=== PATIENT | male | born 1960 | race Caucasian/White ===

== ENCOUNTER 2016-12-08 07:45 | Day surgery (SDC) | payer MEDICAID ==
[2016-12-08] MEDS ORDERED: [UNRECOGNIZED DRUG - OTHER] (08:17)
[2016-12-08 08:23] VITALS: BP 139/96; BMI 23.0
[2016-12-08 08:23] LABS: HEMATOCRIT 45.9 % (42.0-54.0); HEMOGLOBIN 16.2 g/dL (13.5-17.5); MCH 33.6 pg (26.0-34.0); MCHC 35.3 g/dL (31.0-37.0); MCV 95.2 fL (80.0-100.0); MEAN PLATELET VOLUME 9.7 fL (7.4-10.4); RBC 4.82 10x6/uL (4.20-6.10); RDW 12.7 % (11.5-14.5); WBC 10.4 10x3/uL (4.8-10.8)
--- NOTE | 2016-12-08 11:30 | NUR ---
1115-patient updated as to dr hunter's estimated time for his procedure --1 to 1/2 hours.
--- NOTE | 2016-12-08 14:30 | NUR ---
PT REC'D TO ROOM VIA STRETCHER. AWAKE, ALERT.
--- NOTE | 2016-12-08 14:45 | NUR ---
FULL LIQ DIET PROVIDED AND TOLERATED.
--- NOTE | 2016-12-08 15:06 | NUR ---
IV D/C'D CATH INTACT RIGHT FOREARM.
--- NOTE | 2016-12-08 15:15 | NUR ---
D/C INSTRUCTIONS EXPLAINED TO PT. VOICED UNDERSTANDING. COPIES OF ALL GIVEN. AWAITING TRANSPORTATION HOME.
--- NOTE | 2016-12-08 15:48 | NUR ---
D/C'D HOME VIA W/C TO PRIVATE CAR.
--- NOTE | 2016-12-18 10:04 | OP ---
PATIENT NAME: LIZ NG MEDICAL RECORD: [id number] :58 LOCATION:D.OPS ADMISSION DATE: SURGEON: OLVIN GRISSOM MD DATE OF OPERATION: 12/08/2016 PREOPERATIVE DIAGNOSIS: History of colon polyps in need of surveillance colonoscopy. POSTOPERATIVE DIAGNOSIS: History of colon polyps in need of surveillance colonoscopy with 2 sessile rectal polyps. PROCEDURES: 1. Total colonoscopy to cecum. 2. Hot biopsy forceps polypectomies times 2. SURGEON: Olvin Grissom MD WEB SIZER: None. BLOOD LOSS: Minimal. ANESTHESIA: IV sedation. COMPLICATIONS: None. The risks, possible complications, and alternatives to the procedure were explained to the patient. He elects to proceed. ENDOSCOPIC COURSE: The patient was conveyed to the endoscopy suite electively on 12/08/2016. IV sedation was induced by the anesthesia staff. The patient was placed in the Villarreal position. A digital rectal examination was performed. The colonoscope was inserted through the anus. It was easily advanced to the cecum. Upon withdrawal, I irrigated and aspirated extensively. The prep was adequate. The pullback was greater than an 18-minute pullback. Two rectal polyps were noted. One was 7 mm in diameter and the other was 1.1 cm in diameter. Both were removed in their entireties utilizing the hot biopsy forceps polypectomy technique. A retroflexed view was obtained in the rectum. I then unretroflexed the scope and removed it under direct vision. I will plan to see him in my office in 2-3 weeks. I will plan for his next surveillance colonoscopy to take place in 3 years in the GI lab. TRANSINT:[id number] Voice Confirmation ID: [id number] DOCUMENT ID: [id number] OLVIN GRISSOM MD at 1004 CC: MARK JERRY DO [id number] DICTATION DATE: 12/08/16 1408 OLIVE PITTER: 12/08/16 1514 [facility] 12/08/16 [place] [id number]
--- NOTE | 2016-12-18 10:04 | HP ---
PATIENT: LIZ NG MEDICAL RECORD: [id number] ACCOUNT: [id number] LOCATION:[facility] : 58 ADMISSION DATE: 12/08/16 HISTORY AND PHYSICAL EXAMINATION CHIEF COMPLAINT: History of colon polyps. HISTORY OF PRESENT ILLNESS: The patient has a history of colon polyps. He underwent a colonoscopy back in November of 2015. This revealed adenomatous polyps, which was a tubular adenoma at 70 cm as well as another tubular adenoma at 65 cm. He has had no abdominal pain. No rectal bleeding. SOCIAL HISTORY: Nonsmoker. PAST MEDICAL AND SURGICAL HISTORY: COPD, history of colon polyps. HOME MEDICATIONS: Please see the nursing list. ALLERGIES: No known drug allergies. PHYSICAL EXAMINATION: GENERAL: The patient does not appear acutely ill. He does not appear chronically ill. VITAL SIGNS: Reviewed. EARS: External ears appear normal. EYES: Extraocular movements are intact. NECK: Trachea is midline. CHEST: No intercostal retractions. PULMONARY: Nonlabored, no stridor. ABDOMEN: Nontender. IMPRESSION History of colon polyps, in need of surveillance colonoscopy. PLAN: Surveillance colonoscopy. TRANSINT:[id number] Voice Confirmation ID: [id number] DOCUMENT ID: [id number] EVERARDO GRISSOM MD at 1004 CC: MARK JERRY DO [id number] DICTATION DATE: 12/08/16 1333 ANIMAL LABORATORY TECHNICIAN: 12/08/16 1405 [facility] 12/08/16 [place] [id number] [place] [id number]
== END 2016-12-08 15:53 | disposition home or self-care (01) ==
LOC: D.OPS 07:45
PROVIDERS: Anesthesiology
DX: Z12.11 Encounter for screening for malignant neoplasm of colon (principal); K62.1 Rectal polyp; Z86.010 Personal history of colon polyps; J44.9 Chronic obstructive pulmonary disease, unspecified; Z79.899 Other long term (current) drug therapy; Z01.812 Encounter for preprocedural laboratory examination

== ENCOUNTER 2017-07-10 09:49 | Emergency (ER) | payer MEDICAID ==
[~2017-07-10 09:49] MED LIST: [UNRECOGNIZED DRUG - OTHER]
== END 2017-07-10 12:16 | disposition home or self-care (01) ==
LOC: D.ER 09:49
DX: S01.81XA Laceration without foreign body of other part of head, initial encounter (principal); W26.8XXA Contact with other sharp object(s), not elsewhere classified, initial encounter; Y93.89 Activity, other specified; Y92.830 Public park as the place of occurrence of the external cause; F17.200 Nicotine dependence, unspecified, uncomplicated

== ENCOUNTER → 2018-04-19 15:22 | Outpatient (CLI) | payer MEDICAID | END | disposition home or self-care (01) | LOC: D.MRI 15:22 | PROVIDERS: ATTEND Nurse Practitioner Family | DX: M67.432 Ganglion, left wrist (principal) ==

== ENCOUNTER → 2018-04-25 09:50 | Outpatient (CLI) | payer MEDICAID ==
--- NOTE | 2018-04-29 14:57 | ST ---
PATIENT:LIZ NG MEDICAL RECORD: [id number] SEX: M LOCATION:[facility] ORDER #: ADMISSION DATE: 04/25/18 AGE OF PATIENT: 57 REFERRING PHYSICIAN: INTERPRETING PHYSICIAN: OWEN MEJIA MD DATE OF SERVICE: 04/25/2018 PROCEDURE: Nuclear stress test. INDICATION: Angina, coronary artery disease, abnormal ECG. He was exercised on standard Michele protocol for 9 minutes 30 seconds achieving greater than 85% of max target heart rate response with 32 mCi of sestamibi injected at peak stress, 10 mCi were used previously for rest images. FINDINGS: Gated SPECT reveals preserved ejection fraction at 65% with decreased thickening and brightening throughout the inferior segments. SPECT imaging: Cardiolite was used as myocardial perfusion agent. There is a fixed perfusion defect inferiorly compatible with previous inferior myocardial infarction; however, there is reversibility anteriorly and apically. This includes the basal, mid, apical, anterior segments as well as the apex itself. The degree of reversibility is mild. The amount of myocardium involved between the 2 defects is large. OVERALL IMPRESSION: This is an abnormal nuclear stress test, fixed perfusion defect inferiorly, reversible ischemia anteriorly suggestive of multivessel coronary artery disease. We will proceed with coronary angiography as a followup study. TRANSINT:[id number] Voice Confirmation ID: [id number] DOCUMENT ID: [id number] OWEN MEJIA MD at 1457 CC: [id number] DICTATION DATE: 04/25/18 1611 SHOW GIRL: 04/26/18 0559 DEP CLI 04/25/[address] [address]
== END | disposition home or self-care (01) ==
LOC: D.HCCARDIO 09:30
PROVIDERS: ATTEND Internal Medicine Interventional Cardiology
DX: I20.9 Angina pectoris, unspecified (principal)

== ENCOUNTER → 2018-05-03 12:47 | Outpatient (CLI) | payer MEDICAID ==
[~2018-05-03 12:47] MED LIST changes: +BRILINTA90 MG PO
== END | disposition home or self-care (01) ==
LOC: D.HCCARDIO 12:47
PROVIDERS: ATTEND Internal Medicine Interventional Cardiology
DX: R01.1 Cardiac murmur, unspecified (principal)

== ENCOUNTER 2018-05-04 11:19 | Outpatient (CLI) | payer MEDICAID ==
[~2018-05-04] VITALS: Ht 177.8 cm; Wt 72.7 kg
--- NOTE | ~2018-05-04 | HEMODYNAMI ---
PATIENT:LIZ NG MEDICAL RECORD: [id number] : 58 LOCATION:DR[facility]eCAT ADMISSION DATE: 05/04/18 Generatedon:05/04/201813:53 Patient name: LIZ NG Patient #: [id number] SSN: : 1960 Date of study: 05/04/2018 Page: Of Hemodynamic Procedure Report Patient Data Patient Demographics Procedure consent was obtained First Name: LIZ Gender: Male Last Name: HERNANDEZ : 1960 Middle Initial: [facility] Age: 57 year(s) Patient #: [id number] Race: Unknown Additional ID: [id number] Contact details [address]: [address] [place] [address] rd State: [place] City: [place] Zip code: [address] Past Medical History Allergies: No known allergies Admission Admission Data Admission Date: 05/04/2018 Admission Time: 11:19 Admit Source: Other Insurance Payor: Private health insurance Height (in.): 70 BSA: 1.9 (m2) Height (cm.): 177.8 BMI: 23.01 (kg/m2) Weight (lbs.): 160.34 Weight (kg.): 72.73 Procedure Procedure Types Cath Procedure Diagnostic Procedure [facility] w/Coronaries Sedation Charges Moderate Sedation up to 15 minutes PCI Procedure Coronary Stent Coronary Stent Initial Procedure Description Procedure Date Procedure Date: 05/04/2018 Procedure Start Time: 13:30 Procedure End Time: 13:53 Procedure Staff Name Function Caroline Donnelly RT Monitor Robyn Guy RT Scrub Joan Wiggins RN Nurse James Leung MD Performing Physician Procedure Data Cath Procedure Fluoroscopy Diagnostic fluoroscopy Total fluoroscopy Time: 3.8 time: 3.8 min min Diagnostic fluoroscopy Total fluoroscopy dose: 913 dose: 913 mGy mGy Contrast Material Contrast Material Type Amount (ml) Isovue 300 300 Entry Location Entry Primary Successful Side Size Upsize Upsize Entry Closure Succes sful Closure Location (Fr) 1 (Fr) 2 (Fr) Remarks Device Remarks Femoral Right 5 Fr 6 Fr Exoseal artery Short Estimated blood loss: 5 ml Diagnostic catheters Device Type Used For End Catheter Placement MULTIPACK JL 4.0 5Fr Left Coronary catheter Angiography MULTIPACK 3DRC 5Fr Right Coronary catheter Angiography MULTIPACK Pigtail 5 Fr LV Angiography catheter Procedure Complications No complications Procedure Medications Medication Administration Route Dosage Oxygen etCO2 Nasal cannula 2 l/min Lidocaine 2% added to field 20 Heparin Flush Bag added to field 2 bags (1000units/500ml NS) 0.9% NaCl I.V. 100 ml/hr Versed I.V. 2 mg Fentanyl I.V. 50 mcg Versed I.V. 1 mg Fentanyl I.V. 50 mcg Heparin Bolus I.V. 4000 units Integrilin (Bolus I.V. 6.8 ml 2mg/ml) Versed I.V. 1 mg Brilinta P.O. 180 mg Hemodynamics Rest BSA: 1.9 (m2) O2 Consumption: Estimated: 218.33 (ml/min) O2 Consumption indexed: Estimated:114.91 (ml/min/m) Heart Rate: 62 (bpm) Pressure Samples Time Site Value (mmHg) Purpose Heart Use Rate(bpm) 13:37 LV 119/6,10 EDP 71 13:37 AO 107/75(89) Pullback 74 13:37 LV 121/9,20 Pullback 74 Gradients Valve Time Site 1 Site 2 Mean SEP/DFP Peak To Heart Use (mmHg) (sec/min) Peak Rate (mmHg) (bpm) Aortic 13:37 LV AO 10 19 14 74 121/9,20 107/75(89) Calculations Valve P-P Mean Valve Index Valve Source Name Gradient Area Flow (cm2) Aortic 14 10 14 10 Snapshots Pre Cath Intra NCS Post Cath Vital Signs Time Heart Resp SPO2 etCO2 NIBP (mmHg) Rhythm Pain Sedation Rate (ipm) (%) (mmHg) Status Level (bpm) 13:23:16 69 18 99 35.4 150/96(119) NSR 0 (11) 10(A) , No pain 13:27:31 73 15 98 20.3 134/91(111) NSR 0 (11) 10(A) , No pain 13:31:48 66 16 98 0 122/83(98) NSR 0 (11) 10(A) , No pain 13:36:03 71 14 98 0 132/85(99) NSR 0 (11) 9(A) , No pain 13:40:10 69 12 98 0 127/83(94) NSR 0 (11) 9(A) , No pain 13:44:22 74 13 98 0 117/69(89) NSR 0 (11) 9(A) , No pain 13:48:34 75 12 98 0 111/65(79) NSR 0 (11) 9(A) , No pain 13:52:44 71 14 97 39.9 127/80(111) NSR 0 (11) 10(A) , No pain Medications Time Medication Route Dose Verified Delivered Reason Notes Effectiveness by by 13:27:14 Oxygen etCO2 2 Gerard Buffie used for Nasal l/min Donavon Wiggins RN procedure cannula 13:27:21 Lidocaine 2% added 20ml Gerard Gerard for local to vial Donavon Raphael MD anesthetic field 13:27:29 Heparin Flush added 2 Gerard Gerard used for Bag to bags Donavon Raphael MD procedure (1000units/500ml field NS) 13:27:38 0.9% NaCl I.V. 100 Gerard Buffie Per physician ml/hr Donavon Wiggins RN 13:27:48 Versed I.V. 2 mg Gerard Buffie for sedation Donavon Wiggins RN 13:27:53 Fentanyl I.V. 50 Gerard Buffie for sedation mcg Donavon Wiggins RN 13:32:52 Versed I.V. 1 mg Gerard Buffie for sedation Donavon Wiggins RN 13:32:56 Fentanyl I.V. 50 Gerard Buffie for sedation mcg Donavon Wiggins RN 13:40:02 Heparin Bolus I.V. 4000 Gerard Buffie for verif ied units Donavon Wiggins RN anticoagulation with dr lucio 13:40:50 Integrilin I.V. 6.8 Gerard Buffie for Waste d (Bolus 2mg/ml) ml Donavon Wiggins RN antiplatelet 3.2 ml therapy of vial 13:44:10 Versed I.V. 1 mg Gerard Buffie for sedation Donavon Wiggins RN 13:52:39 Brilinta P.O. 180 Gerard Buffie for mg Donavon Wiggins RN antiplatelet therapy Procedure Log Time Note 12:33:17 Signed procedure consent form obtained from patient. 12:33:18 Time tracking: Regular hours (M-F 7:00 - 5:00) 12:33:22 Plan of Care:Hemodynamics will remain stable., Cardiac rhythm will remain stable., Comfort level will be maintained., Respiratory function will remain adequate., Patient/ family verbilizes understanding of procedure., Procedure tolerated without complication., Recovers from procedure without complications.. 12:33:27 Diagnostic Cath status Elective 12:38:16 Patient Height : 70 inches 12:38:24 Patient Weight : 160.34 lbs 12:38:56 Admit Source: Other 12:38:57 Insurance Payor : Private health insurance 13:06:06 Caroline Counts RT(R) sent for patient. Start room use. 13:11:41 Patient received from Pre/Post Procedure Room to CCL 1 Alert and oriented. Tansferred to table in Supine position. 13:11:42 Warm blankets applied, and jade hugger turned on for patient comfort. 13:11:43 Correct patient and procedure confirmed by team. 13:11:43 ECG and BP/O2 sat monitors applied to patient. 13:22:04 Vital chart was started 13:24:42 Baseline sample Acquired. 13:24:43 Full Disclosure recording started 13:24:47 Rhythm: sinus rhythm 13:24:58 H&P Date Dictated: 04/13/2018 Within 30 days and on chart., H&P Addendum completed by physician on day of procedure. (MUST COMPLETE FOR ALL OUTPATIENTS). 13:25:01 Pre-procedure instructions explained to patient. 13:25:01 Pre-op teaching completed and patient verbalized understanding. 13:25:05 Family unavailable. 13:25:07 Patient NPO since Midnight. 13:25:16 Patient allergic to No known allergies 13:25:18 Is the patient allergic to Iodine/contrast media? No. 13:25:19 Is patient on blood thinner?No 13:25:20 Patient diabetic? No. 13:25:23 Previous problem with sedation/anesthesia? No ? 13:25:24 Snore? Yes 13:25:25 Sleep apnea? No 13:25:26 Deviated septum? No 13:25:27 Opens mouth fully? Yes 13:25:28 Sticks out tongue? Yes 13:25:30 Airway obstruction? No ? 13:25:31 Dentures? No ? 13:25:33 Pre procedure: right dorsailis pedis pulse 2+ Normal; easily identifiable; not easily obliterated 13:25:35 Modified Gui's test Ulnar > 7 seconds. 13:25:36 Patient pain scale 0/10 ?. 13:25:41 IV patent on arrival in left forearm with 0.9% NaCl at [facility]. 13:25:44 Lab results completed and on chart. 13:25:47 Right groin area was prepped with chlora-prep and draped in sterile fashion 13:25:48 Alarms reviewed by R. N. 13:25:49 Sharps counted by scrub and verified by R.N. 13:25:52 Use device set Femoral Dx 13:25:53 ACIST Syringe (43376) opened to sterile field. 13:25:53 Bag Decanter (2002S) opened to sterile field. 13:25:54 Medline Cath Pack ([id number]) opened to sterile field. 13:25:54 DIAGNOSTIC WIRE .035 260cm J wire (696074) opened to sterile field. 13:25:55 ACIST Hand Control (18843) opened to sterile field. 13:25:56 ACIST Manifold (92672) opened to sterile field. 13:25:56 DIAGNOSTIC Multipack 5Fr catheter set ([id number]) opened to sterile field. 13:25:58 SHEATH 5FR Jacobson (NLU376) opened to sterile field. 13:26:06 Final Timeout: patient, procedure, and site verified with staff and physician. All members of the team are in agreement. 13:26:07 Right groin site verified by team. 13:26:10 Maximum allowable Isovue 300 dose 300ml. Physician notified. (300ml for normal creatinines. For patients with creatinine of 1.7 or higher multiply weight(kg) x 5 divided by creatinine.) 13:26:13 Fire Safety Assessment: A--An alcohol-based skin anteseptic being used preoperatively., C--Open oxygen or nitrous oxide is being used., D--An ESU, laser, or fiber-optic light is being used. 13:26:16 Physical assessment completed. ASA score P 2 - A patient with mild systemic disease as per Gerard Raphael MD. 13:26:19 Sedation plan: IV Moderate Sedation Medication:Versed, Fentanyl 13:27:14 Oxygen 2 l/min etCO2 Nasal cannula was administered by Joan Wiggins RN; used for procedure; 13:27:21 Lidocaine 2% 20ml vial added to field was administered by Gerard Raphael MD; for local anesthetic; 13:27:29 Heparin Flush Bag (1000units/500ml NS) 2 bags added to field was administered by Gerard Raphael MD; used for procedure; 13:27:38 0.9% NaCl 100 ml/hr I.V. was administered by Joan Wiggins RN; Per physician; 13:27:48 Versed 2 mg I.V. was administered by Joan Wiggins RN; for sedation; 13:27:53 Fentanyl 50 mcg I.V. was administered by Joan Wiggins RN; for sedation; 13:28:23 Zero performed for pressure channel P1 13:30:51 Procedure started. 13:30:55 Local anesthetic to right femoral artery with Lidocaine 2% by James Leung MD.INITIAL ACCESS ONLY 13:31:43 A 5 Fr sheath was inserted into the Right Femoral artery 13:32:34 A MULTIPACK JL 4.0 5Fr catheter was advanced over the wire and used for Left Coronary Angiography. 13:32:52 Versed 1 mg I.V. was administered by Joan Wiggins RN; for sedation; 13:32:56 Fentanyl 50 mcg I.V. was administered by Joan Wiggins RN; for sedation; 13:34:26 Catheter removed. 13:35:25 A MULTIPACK 3DRC 5Fr catheter was advanced over the wire and used for Right Coronary Angiography. 13:35:53 Catheter removed. 13:36:15 A MULTIPACK Pigtail 5 Fr catheter was advanced over the wire and used for LV Angiography. 13:36:20 Use device set KETAN PCI 13:36:21 SHEATH 6FR Jacobson ([id number]) opened to sterile field. 13:36:25 INFLATOR Merit BasixCompak (IO9485) opened to sterile field. 13:36:26 WHISPER 300cm guide wire ([id number]) opened to sterile field. 13:36:30 GUIDE 6FR XBLAD 3.5 catheter ([id number]) opened to sterile field. 13:37:12 LV gram done using EVANS 13:37:13 LV hemodynamics recorded. 13:37:18 Injector settings: Ml/sec: 10, Volume: 20, 13:37:37 EF : 55 % 13:37:40 Catheter removed. 13:37:48 Sheath upsized to a 6 Fr Short. 13:39:44 6 Fr XBLAD 3.5 guide catheter was inserted over the wire 13:40:02 Heparin Bolus 4000 units I.V. was administered by Joan Wiggins RN; for anticoagulation; verified with dr lucio 13:40:50 Integrilin (Bolus 2mg/ml) 6.8 ml I.V. was administered by Joan Wiggins RN; for antiplatelet therapy; Wasted 3.2 ml of vial 13:42:12 WHISPER wire advanced. 13:43:54 Inflate balloon Inflation number: 1 A EMERGE OTW 2.5 x 12 balloon ([id number]) was prepped and advanced across the Mid LAD, then inflated to 12 GABI for 0:23 (min:sec). 13:44:10 Versed 1 mg I.V. was administered by Joan Wiggins RN; for sedation; 13:44:33 Inflation number: 2 The EMERGE OTW 2.5 x 12 balloon ([id number]) was reinflated across the Mid LAD, to 14 GABI for 0:22 (min:sec). 13:45:01 Balloon removed over the wire. 13:48:42 Place stent Inflation Number: 3 A NANDO RX 3.0 x 18 stent ([id number]) was prepped and advanced across the Mid LAD. The stent was deployed at 14 GABI for 0:27 (min:sec). 13:49:06 Stent catheter was removed intact over wire. 13:49:07 Wire removed. 13:49:08 Guide catheter removed. 13:49:20 Sheath removed intact; hemostasis achieved with Exoseal to the Right Femoral artery. 13:49:25 Procedure ended.(Physican Out) 13:50:01 Fluoroscopy time 03.80 minutes. 13:50:05 Fluoroscopy dose: 913 mGy 13:50:05 Flurop Dose total: 913 13:50:11 Contrast amount:Isovue 300 300ml. 13:50:13 Sharps counted by scrub and verified by R.N. 13:50:14 Insertion/operative site no bleeding no hematoma. 13:50:18 Post-op/insertion site Right Femoral artery dressed using a 4 x 4 and Tegaderm. 13:50:19 Post Procedure Pulses reassessed and unchanged 13:50:23 Post-procedure physical assessment completed. ASA score P 2 - A patient with mild systemic disease as per James Leung MD. 13:50:31 Post procedure rhythm: sinus rhythm 13:50:34 Estimated blood loss: 5 ml 13:50:36 Post procedure instruction explained to patient.Patient verbalizes understanding. 13:50:37 Patient needs reinforcement of post procedure teaching. 13:50:41 Procedure type changed to Cath procedure, Diagnostic procedure, LHC, LHC w/Coronaries, Sedation Charges, Moderate Sedation up to 15 minutes, PCI procedure, Coronary Stent, Coronary Stent Initial 13:51:00 Procedure Complication : No complications 13:51:02 See physician's report for complete and final results. 13:51:12 EXOSEAL 6Fr (EX600) opened to sterile field. 13:51:55 Procedure and supply charges have been captured, reviewed, submitted and are correct. 13:52:39 Brilinta 180 mg P.O. was administered by Joan Wiggins RN; for antiplatelet therapy; 13:52:55 Vital chart was stopped 13:52:57 Report given to Pre/Post Procedure Room. 13:53:00 Patient transfered to Pre/Post Procedure Room with Stretcher. 13:53:28 Procedure ended. 13:53:28 Full Disclosure recording stopped 13:53:33 End room use (Document Last) Intervention Summary Intervention Notes Time ActionType Lesion and Equipment Used Action# Pressure Duration Attributes 13:43:54 Inflate Mid LAD EMERGE OTW 2.5 1 12 00:24 balloon x 12 balloon ([id number]) 13:44:33 Reinflate Mid LAD EMERGE OTW 2.5 2 14 00:23 balloon x 12 balloon ([id number]) 13:48:42 Place stent Mid LAD NANDO RX 3.0 x 3 14 00:27 18 stent ([id number]) Device Usage Item Name Manufacture Quantity Catalog Number Hospital Part Current Minimal Lot# / Charge Number Stock Stock Serial# Code ACIST Syringe Acist 1 33805 368125 283444 959194 20 (88465) Medical [employer] Bag Decanter Microtek 1 874321 05257 248952 5 () Medical Inc. Medline Cath Medline 1 [id number] 623204 88428 913896 5 Pack ([id number]) DIAGNOSTIC St Man 1 382667 052301 212310 481398 30 WIRE .035 260cm J wire (063077) ACIST Hand Acist 1 55416 303626 003787 249393 5 Control Medical (54331) Systems Inc ACIST Manifold Acist 1 49261 642766 327352 959373 5 (54580) Medical Systems Inc DIAGNOSTIC Cardinal 1 SU4944 330521 69619 473716 30 Multipack 5Fr Health catheter set ([id number]) SHEATH 5FR Terumo 1 QOM746 889172 699425 299574 5 Jacobson (ILQ263) MULTIPACK JL Cardinal 1 612383 5 4.0 5Fr Health catheter MULTIPACK 3DRC Cardinal 1 430259 5 5Fr catheter Health MULTIPACK Cardinal 1 135785 5 Pigtail 5 Fr Health catheter SHEATH 6FR Terumo 1 [id number] 478975 338748 156249 40 Jacobson (FVV131) INFLATOR Merit Merit 1 FF0623 993054 667850 344674 15 [facility] (ZF0566) WHISPER 300cm Horner 1 [id number] 095108 533891 190570 5 guide wire Vascular ([id number]) GUIDE 6FR Cardinal 1 [id number] 932690 210344 754720 10 XBLAD 3.5 Health catheter ([id number]) EMERGE OTW 2.5 [place] 1 [id number] 674152 125746 496518 5 [id number] x 12 balloon Scientific ([id number]) NANDO RX 3.0 x Medtronic 1 [id number] 530016 4229781 703557 5 [id number] 18 stent ([id number]) EXOSEAL 6Fr Cardinal 1 EX600 731968 576254 762428 10 (EX600) Health Signature Audit [place] Stage Time Signature Unsigned Intra-Procedure 05/04/2018 Caroline 1:53:44 PM Counts RT(R) Signatures Monitor : Caroline Signature : Counts RT Date : Time : [facility] [address] [place] [address]
[~2018-05-04 11:19] MED LIST changes: -BRILINTA90 MG PO
[2018-05-04 11:45] VITALS: BP 153/97; Ht 177.8 cm; Wt 72.7 kg
[2018-05-04 11:54] LABS: BASOPHILS 0.9 % (0-2); EOSINOPHILS 2.4 % (0-7); HEMATOCRIT 45.4 % (42.0-54.0); HEMOGLOBIN 16.2 g/dL (13.5-17.5); IMMATURE GRANULOCYTES 0.4 % (0-5); LYMPHOCYTES 32.6 % (15-50); MCH 33.5 pg (26.0-34.0); MCHC 35.7 g/dL (31.0-37.0); MEAN PLATELET VOLUME 9.7 fL (7.4-10.4); NEUTROPHILS 49.7 % (40-80); PLATELET COUNT 321 10x3/uL (130-400); RBC 4.83 10x6/uL (4.20-6.10); RDW 12.6 % (11.5-14.5); WBC 11.1 10x3/uL (4.8-10.8)
[2018-05-04 12:22] LABS: CALC OSMOLALITY 275 mosm/kg (275-300); CALCIUM 9.2 mg/dL (8.5-10.1); CARBON DIOXIDE 25.3 mmol/L (21.0-32.0); CHLORIDE - SERUM 100 mmol/L (98-107); CREATININE - SERUM 0.9 mg/dL (0.6-1.3); GLUCOSE 90 mg/dL (74-106); POTASSIUM - SERUM 3.9 mmol/L (3.5-5.1); SODIUM 138 mmol/L (136-145); UREA NITROGEN 13 mg/dL (7-18); eGFR NON AFRICAN AMERICAN > 90 mL/min (90-120)
[2018-05-04] MEDS ORDERED: BRILINTA90 MG PO (14:07)
--- NOTE | 2018-05-04 14:20 | NUR ---
2L NC, NO RESP DISTRESS. RIGHT GROIN 6F EXOSEAL CDI, NO BLEEDING OR HEMATOMA NOTED. NO C/O PAIN OR NAUSEA. VSS. CALL LIGHT WITHIN REACH.
--- NOTE | 2018-05-04 14:33 | NUR ---
JIMENA CAMACHO CALLED TO [facility] ON [address].
--- NOTE | 2018-05-04 14:50 | NUR ---
RESTING QUIETLY WITH EYES CLOSED. RIGHT GROIN 6F EXOSEAL CDI, NO BLEEDING OR HEMATOMA NOTED. DENIES AND NEEDS OR C/O. VSS. WILL CONTINUE TO MONITOR.
--- NOTE | 2018-05-04 15:05 | NUR ---
CONTINUES TO REST COMFORTABLY WITH NO C/O. RIGHT GROIN 6F EXOSEAL CDI, NO BLEEDING OR HEMATOMA NOTED. NO NEEDS VOICED AT THIS TIME. VSS. CALL LIGHT WITHIN REACH.
--- NOTE | 2018-05-04 15:35 | NUR ---
RIGHT GROIN 6F EXOSEAL CDI, NO BLEEDING OR HEMATOMA NOTED. ROOM AIR WITH NO RESP DISTRESS. DENIES ANY NEEDS OR C/O AT THIS TIME. VSS. WILL CONTINUE TO MONITOR.
--- NOTE | 2018-05-04 16:05 | NUR ---
ROOM AIR WITH NO RESP DISTRESS. RIGHT GROIN 6F EXOSEAL CDI, NO BLEEDING OR HEMATOMA NOTED. VSS. CALL LIGHT WITHIN REACH.
--- NOTE | 2018-05-04 16:45 | NUR ---
HOB ELEVATED 30 DEGREES. RIGHT GROIN 6F EXOSEAL LALA, NO BLEEDING OR HEMATOMA NOTED. SIPPING ON DRINK AND EATING SANDWICH WITH NO C/O NAUSEA. VSS. WILL CONTINUE TO MONITOR CLOSELY.
--- NOTE | 2018-05-04 17:25 | NUR ---
LEFT PIV D/C'D WITH CATHETER INTACT, BAND AID TO SITE. UP TO BEDSIDE TO GET DRESSED. AMBULATED TO RESTROOM.
--- NOTE | 2018-05-04 17:33 | NUR ---
DISCHARGE INSTRUCTIONS GIVEN ALONG WITH BRILINTA SAMPLE. INSTRUCTIONS FOR NEXT PROCEDURE ALSO GIVEN. PT VERBALIZED UNDERSTANDING.
--- NOTE | 2018-05-04 17:44 | NUR ---
TAKEN OUT VIA WHEELCHAIR BY CATH WILDLIFE PROTECTOR. LEFT FACILITY WITH FAMILY AND ALL PERSONAL BELONGINGS.
--- NOTE | 2018-05-08 10:39 | OP ---
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 CATHETERS: A 5-Angolan sheath, 5/4 left and right Maggie, 5/4 pig. The procedure was well tolerated. The patient was returned to the reyes. Sheath was removed. ExoSeal device was placed. FINDINGS: Left ventriculography in 30-degree EVANS view; normal wall motion and normal systolic function. CORONARY ANATOMY: LEFT MAIN: Left main is free of disease. LAD: Right at the takeoff of the first diagonal has a diffuse 90% stenosis. This is a somewhat complex lesion. CIRCUMFLEX: Mid portion has 80% stenosis and not quite complex. RIGHT CORONARY ARTERY: Dominant artery, gives rise to PDA, free of disease. PLAN: Intervention to LAD; circumflex at later date. DESCRIPTION OF PROCEDURE: A 5-Angolan sheath was exchanged for a 6-Angolan sheath. XB LAD guiding catheter provided excellent guide catheter support followed by placement of 300-cm Whisper wire. Pre-deployment balloon used was a 2.5 Faulkner up to 14 atmospheres. Next, stent deployed was 3.0 x 18 mm Garden[place] drug-eluting stent up to 14 atmospheres for 45 seconds. Final angiography shows excellent resolution of 80% to 90% complex stenosis with no significant residual. MARISSA flow was 3 throughout the procedure. Heparin and Integrilin were used during the case. Brilinta was loaded in the lab. Sheath was closed with ExoSeal device. TRANSINT:[id number] Voice Confirmation ID: [id number] DOCUMENT ID: [id number] SHANICE ACEVES MD at 1039 CC: [id number] DICTATION DATE: 05/04/18 1357 SMALL ENGINE TECHNICIAN: 05/04/18 1541 DEP CLI 05/04/18 [place] [id number]
--- NOTE | 2018-05-08 10:39 | EC ---
PATIENT:LIZ NG DATE OF SERVICE: 05/04/18 SEX: M MEDICAL RECORD: [id number] DATE OF : 58 LOCATION:D.CAT AGE OF PATIENT: 57 ADMISSION DATE: 05/04/18 REFERRING PHYSICIAN: INTERPRETING PHYSICIAN: SHANICE ACEVES MD ECHOCARDIOGRAM REPORT ECHO CHARGES Date: CLINICAL DIAGNOSIS: ECHOCARDIOGRAPHIC MEASUREMENTS (adult normal given) AC root (d.<3.7cm) cm LV Septum d (<1.2 cm> cm Valve Excursion cm LV Septum (systole) cm Left Atria (s.<4.0cm> cm LVPW d(<1.2cm) cm RV (d.<2.3cm) cm LVPW (sytole) cm LV diastole(<5.6CM) cm MV E-F(>70mm/sec) cm LV systole cm LVOT Diameter cm MV exc.(>10mm) cm Est.ejection fraction (50-75%) % DOPPLER: LVIT cm/sec A cm/sec E cm/sec LA cm/sec RVSP mmHg LVOT cm/sec AOP1/2T m/s Asc. Ao cm/sec RVOT cm/sec RA cm/sec PA cm/sec AV Gradient Peak mmHg AV Mean mmHg AV Area cm MV Gradient Peak mmHg MV Mean mmHg MV Area cm COMMENTS: Direct Marketing Analyst: Email Marketer: SELENE# Pericardial Effusion DATE OF SERVICE: Adequate 2-D echo, color flow and spectral Doppler, and M-Mode. Mild LVH. LV internal dimensions are normal. Wall motion is normal. EF is greater than or equal to 55%. Aortic valve sclerosis without stenosis by Doppler interrogation. Left atrium is normal at 3.9 cm. Mitral valve shows no prolapse. Trace MR. Right-sided chamber is grossly normal. Trace TR. TRANSINT:[id number] Voice Confirmation ID: [id number] DOCUMENT ID: [id number] ECHOCARDIOGRAM REPORT [id number] LIZ NG SHANICE ACEVES MD at 1039 CC: [id number] DICTATION DATE: 05/05/18 1300 PHD INTERN: 05/05/18 1357 DEP CLI 05/04/18 [place] [id number]
== END 2018-05-04 17:44 | disposition home or self-care (01) ==
LOC: D.CATH 11:19
PROVIDERS: ATTEND Internal Medicine Interventional Cardiology
DX: I25.119 Atherosclerotic heart disease of native coronary artery with unspecified angina pectoris (principal); I35.8 Other nonrheumatic aortic valve disorders; Z01.812 Encounter for preprocedural laboratory examination

== ENCOUNTER 2018-05-16 11:04 | Outpatient (CLI) | payer MEDICAID ==
[~2018-05-16] VITALS: Ht 177.8 cm; Wt 72.7 kg
--- NOTE | ~2018-05-16 | HEMODYNAMI ---
PATIENT:LIZ NG MEDICAL RECORD: [id number] : 58 LOCATION:DReneeCAT ADMISSION DATE: 05/16/18 Generatedon:05/16/201814:35 Patient name: LIZ NG Patient #: [id number] SSN: : 1960 Date of study: 05/16/2018 Page: Of Hemodynamic Procedure Report Patient Data Patient Demographics Procedure consent was obtained First Name: LIZ Gender: Male Last Name: HERNANDEZ : 1960 [facility] Initial: EPHRAIM Age: 57 year(s) Patient #: [id number] Race: Unknown Additional ID: [id number] Contact details [address]: [address] [place] [address] rd State: [place] City: [place] Zip code: [address] Past Medical History Allergies: No known allergies Admission Admission Data Admission Date: 05/16/2018 Admission Time: 11:04 Weight (lbs.): 160.94 Weight (kg.): 73 Lab Results Lab Result Date: 05/16/2018 Lab Result Time: 0:00 Biochemistry Name Units Result Min Max BUN mg/dl 12 --(-*--)-- 7 18 Creatinine mg/dl 0.9 --(-*--)-- 0.6 1.3 CBC Name Units Result Min Max Hemoglobin g/dl 15.6 --(--*-)-- 13.5 17.5 Procedure Procedure Types Cath Procedure PCI Procedure Coronary Stent Coronary Stent Initial Procedure Description Procedure Date Procedure Date: 05/16/2018 Procedure Start Time: 14:18 Procedure End Time: 14:33 Procedure Staff Name Function James Leung MD Performing Physician Loki Drummond RT Monitor Mouna Blackwell RN Nurse Rk Matias RT Scrub Procedure Data Cath Procedure Fluoroscopy Diagnostic fluoroscopy Total fluoroscopy Time: 3.7 time: 3.7 min min Diagnostic fluoroscopy Total fluoroscopy dose: 394 dose: 394 mGy mGy Contrast Material Contrast Material Type Amount (ml) Isovue 300 73 Entry Location Entry Primary Successful Side Size Upsize Upsize Entry Closure Succes sful Closure Location (Fr) 1 (Fr) 2 (Fr) Remarks Device Remarks Femoral Right 6 Fr Exoseal artery Short Estimated blood loss: 10 ml Procedure Complications No complications Procedure Medications Medication Administration Route Dosage 0.9% NaCl I.V. 100 ml/hr Oxygen etCO2 Nasal cannula 2 l/min Lidocaine 2% added to field 20 Heparin Flush Bag added to field 2 bags (1000units/500ml NS) Heparin Bolus I.V. 5000 units Versed I.V. 2 mg Fentanyl I.V. 50 mcg Fentanyl I.V. 50 mcg Hemodynamics Rest HGB: 15.6 (g/dl) Heart Rate: 62 (bpm) Pressure Samples Time Site Value (mmHg) Purpose Heart Use Rate(bpm) 14:27 AO 134/83(105) Snapshot 72 14:29 AO 133/83(105) Snapshot 71 Snapshots Pre Cath Intra NCS Post Cath Vital Signs Time Heart Resp SPO2 etCO2 NIBP (mmHg) Rhythm Pain Sedation Rate (ipm) (%) (mmHg) Status Level (bpm) 14:06:16 57 20 100 33.2 161/101(144) SB 0 (11) 10(A) , No pain 14:10:30 58 13 100 33.1 159/98(126) SB 0 (11) 10(A) , No pain 14:14:44 68 15 100 19.6 152/96(127) NSR 0 (11) 10(A) , No pain 14:19:00 70 17 100 31.7 140/88(116) NSR 0 (11) 9(A) , No pain 14:23:14 67 14 100 32.6 129/82(106) NSR 0 (11) 9(A) , No pain 14:27:26 73 14 100 37.7 138/86(112) NSR 0 (11) 9(A) , No pain 14:31:40 71 14 100 38.5 137/90(105) NSR 0 (11) 10(A) , No pain Medications Time Medication Route Dose Verified Delivered Reason Notes Effectiveness by by 14:08:07 0.9% NaCl I.V. 100 James Mouna used for ml/hr KetanAdam Blackwell procedure MD GUARDADO 14:08:13 Oxygen etCO2 2 James Mouna used for Nasal l/min [facility] Adam Blackwell procedure cannula MD GUARDADO 14:08:18 Lidocaine 2% added 20ml James Ramirez for local to vial Count Includes [facility] anesthetic field MD SINGH 14:08:23 Heparin Flush added 2 James Ramirez used for Bag to bags Count Includes [facility] procedure (1000units/500ml field MD SINGH NS) 14:13:00 Fentanyl I.V. 50 James Mouna for sedation mcg [facility] Adam Blackwell MD, RN 14:13:53 Versed I.V. 2 mg James Mouna for sedation [facility] Adam Blackwell MD, RN 14:18:08 Fentanyl I.V. 50 James Mouna for sedation mcg [facility] Adam Blackwell MD, RN 14:22:30 Heparin Bolus I.V. 5000 James Mouna for verif ied units [facility] anticoagulation with Dr. MD GUARDADO [place] Procedure Log Time Note 13:50:53 Loki Drummond RT(R) sent for patient. Start room use. 14:00:01 Patient received from Pre/Post Procedure Room to CCL 1 Alert and oriented. Tansferred to table in Supine position. 14:04:03 Time tracking: Regular hours (M-F 7:00 - 5:00) 14:04:08 Plan of Care:Hemodynamics will remain stable., Cardiac rhythm will remain stable., Comfort level will be maintained., Respiratory function will remain adequate., Patient/ family verbilizes understanding of procedure., Procedure tolerated without complication., Recovers from procedure without complications.. 14:05:02 Warm blankets applied, and jade hugger turned on for patient comfort. 14:05:04 Correct patient and procedure confirmed by team. 14:05:06 Signed procedure consent form obtained from patient. 14:05:06 ECG and BP/O2 sat monitors applied to patient. 14:05:07 Vital chart was started 14:08:07 0.9% NaCl 100 ml/hr I.V. was administered by Mouna Blackwell RN; used for procedure; 14:08:13 Oxygen 2 l/min etCO2 Nasal cannula was administered by Mouna Blackwell RN; used for procedure; 14::18 Lidocaine 2% 20ml vial added to field was administered by James Leung MD; for local anesthetic; 14:08:23 Heparin Flush Bag (1000units/500ml ELHAM) 2 bags added to field was administered by James Leung MD; used for procedure; 14:09:07 Baseline sample Acquired. 14:09:15 Rhythm: sinus rhythm 14:09:17 Full Disclosure recording started 14::27 H&P Date Dictated: 05/16/2018 New H&P dictated by physician.. 14:09:28 Pre-procedure instructions explained to patient. 14:09:29 Pre-op teaching completed and patient verbalized understanding. 14:09:31 Family in patients room. 14:09:33 Patient NPO since Midnight. 14:09:35 Is the patient allergic to Iodine/contrast media? No. 14:09:37 Is patient on blood thinner?Yes 14:09:40 ACC The patient was administered the following blood thiners within the last 24 hours: ACCBrilinta 14:09:43 Patient diabetic? No. 14:09:45 Previous problem with sedation/anesthesia? No ? 14:09:46 Snore? Yes 14:09:47 Sleep apnea? No 14:09:49 Deviated septum? No 14:09:49 Opens mouth fully? Yes 14:09:51 Sticks out tongue? Yes 14:09:53 Airway obstruction? No ? 14:09:55 Dentures? No ? 14:09:58 Pre procedure: right dorsailis pedis pulse 1+ Palpable, but thready & weak; easily obliterated 14:10:01 Patient pain scale 0/10 ?. 14:10:18 IV patent on arrival in left forearm with 0.9% NaCl at KVO. 14:10:20 Lab results completed and on chart. 14:10:23 Right groin area was prepped with chlora-prep and draped in sterile fashion 14:10:24 Alarms reviewed by R. N. 14:10:27 Sharps counted by scrub and verified by R.N. 14:10:37 Use device set Radial Dx or PCI 14:10:39 Use device set KETAN PCI 14:10:41 Tegaderm 4 x 4 (1626W) opened to sterile field. 14:10:42 ACIST Manifold (47848) opened to sterile field. 14:10:44 ACIST Hand Control (15001) opened to sterile field. 14:10:45 Bag Decanter (2001S) opened to sterile field. 14:10:45 Medline Cath Pack ([id number]) opened to sterile field. 14:10:46 ACIST Syringe (45052) opened to sterile field. 14:10:46 DIAGNOSTIC WIRE .035 260cm J wire (930872) opened to sterile field. 14:10:55 INFLATOR Merit BasixCompak (KQ2338) opened to sterile field. 14:10:57 WHISPER 300cm guide wire ([id number]) opened to sterile field. 14:11:53 SHEATH 6FR Coldspring (LHT263) opened to sterile field. 14:12:05 --------ALL STOP TIME OUT------ 14:12:05 Final Timeout: patient, procedure, and site verified with staff and physician. All members of the team are in agreement. 14:12:07 Right groin site verified by team. 14:12:11 Maximum allowable Isovue 300 dose 300ml. Physician notified. (300ml for normal creatinines. For patients with creatinine of 1.7 or higher multiply weight(kg) x 5 divided by creatinine.) 14:12:20 Fire Safety Assessment: A--An alcohol-based skin anteseptic being used preoperatively., C--Open oxygen or nitrous oxide is being used., D--An ESU, laser, or fiber-optic light is being used. 14:12:26 Physical assessment completed. ASA score P 2 - A patient with mild systemic disease as per James Leung MD. 14:12:29 Sedation plan: IV Moderate Sedation Medication:Versed, Fentanyl 14:13:00 Fentanyl 50 mcg I.V. was administered by Mouna Blackwell RN; for sedation; 14:13:53 Versed 2 mg I.V. was administered by Mouna Blackwell RN; for sedation; 14:15:07 Patient Weight : 160.94 lbs 14:15:26 Lab Result : BUN 12 mg/dl 14:15:26 Lab Result : Hemoglobin 15.6 g/dl 14:15: Lab Result : Creatinine 0.9 mg/dl 14:18:08 Fentanyl 50 mcg I.V. was administered by Mouna Blackwell RN; for sedation; 14:18:29 GUIDE 6FR XBLAD 3.5 catheter ([id number]) opened to sterile field. 14:18:35 Procedure started. 14:18:39 Local anesthetic to right femoral artery with Lidocaine 2% by James Leung MD.INITIAL ACCESS ONLY 14:20:22 A 6 Fr Short sheath was inserted into the Right Femoral artery 14:20:29 6 Fr XBLAD 3.5 guide catheter was inserted over the wire 14:21:11 Whisper wire advanced. 14:22:30 Heparin Bolus 5000 units I.V. was administered by Mouna Blackwell RN; for anticoagulation; verified with Dr. Cross 14:26:50 Wire advanced across lesion. 14:29:30 Place stent Inflation Number: 1 A NANDO RX 3.0 x 18 stent ([id number]) was prepped and advanced across the Mid CX. The stent was deployed at 14 GABI for 0:30 (min:sec). 14:30:03 Stent catheter was removed intact over wire. 14:30:04 Wire removed. 14:30:05 Guide catheter removed. 14:30:06 EXOSEAL 6Fr (EX600) opened to sterile field. 14:30:26 Sheath removed intact; hemostasis achieved with Exoseal to the Right Femoral artery. 14:30:28 Procedure ended.(Physican Out) 14:31:07 Fluoroscopy time 03.70 minutes. 14:31:11 Fluoroscopy dose: 394 mGy 14:31:11 Flurop Dose total: 394 14:31:15 Contrast amount:Isovue 300 73ml. 14:31:16 Sharps counted by scrub and verified by R.N. 14:31:17 Insertion/operative site no bleeding no hematoma. 14:31:20 Post-op/insertion site Right Femoral artery dressed using a 4 x 4 and Tegaderm. 14:31:21 Post Procedure Pulses reassessed and unchanged 14:31:24 Post-procedure physical assessment completed. ASA score P 2 - A patient with mild systemic disease as per James Leung MD. 14:31:27 Post procedure rhythm: unchanged. 14:31:31 Estimated blood loss: 10 ml 14:32:31 Post procedure instruction explained to patient.Patient verbalizes understanding. 14:32:31 Patient needs reinforcement of post procedure teaching. 14:32:58 Procedure and supply charges have been captured, reviewed, submitted and are correct. 14:33:01 Procedure Complication : No complications 14:33:03 Vital chart was stopped 14:33:04 See physician's report for complete and final results. 14:33:09 Report given to PCU. 14:33:15 Patient transfered to PCU with Bed. 14:33:18 Procedure ended. 14:33:18 Full Disclosure recording stopped 14:35:06 End room use (Document Last) Intervention Summary Intervention Notes Time ActionType Lesion and Equipment Used Action# Pressure Duration Attributes 14:29:30 Place stent Mid CX NANDO RX 3.0 x 1 14 00:30 18 stent ([id number]) Device Usage Item Name Manufacture Quantity Catalog Hospital Part [facility] Lot# / Number Charge Number Stock Stock Serial# Code Tegaderm 4 x 4 3M 1 1626W [id number] 473071 430633 5 (1626W) ACIST Manifold Acist 1 85061 215489 408001 663722 5 (85458) Medical Systems Inc ACIST Hand Acist 1 65279 930681 217505 343805 5 Control Medical (74300) Systems Inc Bag Decanter Microtek 1 2002S 536367 94420 108411 5 (2002S) Medical Inc. Medline Cath Medline 1 [id number] 360179 92506 101554 5 Pack ([id number]) ACIST Syringe Acist 1 19086 685918 690741 531331 20 (31615) Medical Systems Inc DIAGNOSTIC St Man 1 931130 722891 564803 776656 30 WIRE .035 260cm J wire (239960) INFLATOR Merit Merit 1 JZ3753 299531 436733 562112 15 [facility] Medical (TR9024) WHISPER 300cm Horner 1 [id number] 597390 797794 977040 5 guide wire Vascular ([id number]) SHEATH 6FR Terumo 1 ZBD144 439526 207156 624651 40 Coldspring (WRC538) GUIDE 6FR Cardinal 1 [id number] 038083 454418 488531 10 XBLAD 3.5 Health catheter (15342015) NANDO RX 3.0 x Medtronic 1 [id number] 894008 3982373 332200 5 [id number] 18 stent ([id number]) EXOSEAL 6Fr Cardinal 1 EX600 492287 213537 160768 10 (EX600) Health Signature Audit [place] Stage Time Signature Unsigned Intra-Procedure 05/16/2018 Loki Drummond 2:35:24 PM RT(R) Signatures Monitor : Loki Drummond RT Signature : Date : Time : [place] [id number] [place] [address]
[~2018-05-16 11:04] MED LIST changes: +BRILINTA90 MG PO
[2018-05-16] MEDS ORDERED: BAYER CHEWABLE81 MG PO (11:16)
[2018-05-16 11:23] VITALS: BP 165/91; Ht 177.8 cm; Wt 72.7 kg
[2018-05-16 11:45] LABS: BASOPHILS 0.6 % (0-2); EOSINOPHILS 2.4 % (0-7); HEMATOCRIT 44.3 % (42.0-54.0); HEMOGLOBIN 15.6 g/dL (13.5-17.5); IMMATURE GRANULOCYTES 0.3 % (0-5); LYMPHOCYTES 29.4 % (15-50); MCH 33.4 pg (26.0-34.0); MCHC 35.2 g/dL (31.0-37.0); MCV 94.9 fL (80.0-100.0); MEAN PLATELET VOLUME 9.5 fL (7.4-10.4); MONOCYTES 10.5 % (2-11); NEUTROPHILS 56.8 % (40-80); PLATELET COUNT 375 10x3/uL (130-400); RBC 4.67 10x6/uL (4.20-6.10); RDW 12.8 % (11.5-14.5); WBC 11.6 10x3/uL (4.8-10.8)
[2018-05-16 11:48] LABS: CALC OSMOLALITY 274 mosm/kg (275-300); CALCIUM 8.9 mg/dL (8.5-10.1); CHLORIDE - SERUM 101 mmol/L (98-107); CREATININE - SERUM 0.9 mg/dL (0.6-1.3); GLUCOSE 116 mg/dL (74-106); SODIUM 137 mmol/L (136-145); UREA NITROGEN 12 mg/dL (7-18); eGFR NON AFRICAN AMERICAN > 90 mL/min (90-120)
--- NOTE | 2018-05-16 14:50 | NUR ---
RECIEVED TO ROOM VIA STRETCHER FROM BEER BREWER WITH 6 FR EXOSEAL R/GROIN CDI NO BLEEDING OR HEMATOMA NOTED. PATIENT CONNECTED TO MONITOR FOR OBSERVATION WITH HR 58 BP 159/93 CHEST PAIN IS DENIED
--- NOTE | 2018-05-16 15:01 | NUR ---
6 FR EXOSEAL R/GROIN IS CDI NO BLEEDING NOTED
--- NOTE | 2018-05-16 15:29 | NUR ---
PATIENT RESTING QUIETLY WITH NO DISTRESS NOTED. 6 FR EXOSEAL R/GROIN IS CDI WITH VSS
--- NOTE | 2018-05-16 15:35 | NUR ---
PATIENT CONTINUES TO REST WITH VSS 6 FR EXOSEAL R/GROIN IS CDI
--- NOTE | 2018-05-16 15:52 | NUR ---
PATIENT CONTINUES TO REST WITH VSS 6 FR EXOSEAL R/GROIN IS CDI NO BLEEDING OR HEMATOMA NOTED
--- NOTE | 2018-05-16 16:32 | NUR ---
SANDWICH AND SODA TO BEDSIDE. 6 FR EXOSEAL R/GROIN IS CDI WITH CHEST PAIN DENIED
--- NOTE | 2018-05-16 16:57 | NUR ---
REPOSITIONED TO HOB UP 20 FOR COMFORT. 6 FR EXOSEAL R/GROIN IS CDI WITH NEEDS PROVIDED TO BEDSIDE
--- NOTE | 2018-05-16 17:25 | NUR ---
VERBAL AND WRITTEN DISCHARGE GONE OVER WITH PATIENT. 6 FR EXOSEAL R/GROIN IS CDI
--- NOTE | 2018-05-16 17:55 | NUR ---
PIV REMOVED WITH DRESSING APPLIED. PATIENT UP TO GET DRESSED FOR DISCHARGE HOME 6 FR EXOSEAL R/GROIN IS CDI AND CHEST PAIN IS DENIED
--- NOTE | 2018-05-16 18:07 | NUR ---
PATIENT LEFT VIA WC TO PARKING FOR TRANSPORT HOME CHEST PAIN IS DENIED AND 6 FR EXOSEAL R/GROIN IS CDI
--- NOTE | 2018-05-17 14:26 | OP ---
PATIENT NAME: LIZ NG MEDICAL RECORD: [id number] :58 LOCATION:D.CAT ADMISSION DATE: SURGEON: SHANICE ACEVES MD DATE OF OPERATION: 05/16/2018 PTCA AND STENT REPORT For catheterization report, please see report dictated earlier date. DESCRIPTION OF PROCEDURE: A 6-Andorran sheath was placed into the right femoral artery, EBU 3.5 guiding catheter provided fair guide catheter support followed by a 300 cm Whisper wire was placed across the diffusely stenosed circumflex down this portion of vessel. Stent deployed was a 3.0 x 18 drug-eluting stent up to 14 atmospheres. Final angiography shows excellent resolution of diffuse 80% stenosis, no significant residual. MARISSA flow was 3 throughout the procedure. Heparin was used in the case. The patient was previously on Plavix. TRANSINT:[id number] Voice Confirmation ID: [id number] DOCUMENT ID: [id number] SHANICE ACEVES MD at 1426 CC: [id number] DICTATION DATE: 05/16/18 1436 STACK CLERK: 05/16/18 1510 DEP CLI 05/16/18 [facility] [address] [place] [address]
--- NOTE | 2018-05-17 14:26 | HP ---
PATIENT: LIZ NG MEDICAL RECORD: [id number] ACCOUNT: [id number] LOCATION:JACOBO : 58 ADMISSION DATE: 05/16/18 PCP: MARK JERRY DO HISTORY AND PHYSICAL EXAMINATION HISTORY OF PRESENT ILLNESS: A 57-year-old gentleman with a history, seen in the office with exertional angina, abnormal ECG, underwent Cardiolite stress testing which did show reversible ischemia, does have family history, smokes about a pack a day. He preferred to proceed with diagnostic angiography after discussing nuclear stress testing. PHYSICAL EXAMINATION: GENERAL: Pleasant middle-aged gentleman in no acute distress. HEENT: Normocephalic, atraumatic. NECK: No bruits noted. HEART: Regular. LUNGS: Good air excursion. ABDOMEN: Soft, nontender. EXTREMITIES: Pulses 2+. No edema. DIAGNOSTIC DATA: ECG shows poor R-wave progression, nonspecific ST-T changes. IMPRESSION: We will proceed with diagnostic angiography. TRANSINT:[id number] Voice Confirmation ID: [id number] DOCUMENT ID: [id number] SHANICE ACEVES MD at 1426 CC: [id number] DICTATION DATE: 05/16/18 1329 RESIDENT INTERN: 05/16/18 1346 DEP CLI 05/16/18 [place] [address] [place] [address]
== END 2018-05-16 18:08 | disposition home or self-care (01) ==
LOC: D.CATH 11:04
PROVIDERS: ATTEND Internal Medicine Interventional Cardiology
DX: I25.119 Atherosclerotic heart disease of native coronary artery with unspecified angina pectoris (principal); Z01.812 Encounter for preprocedural laboratory examination; Z82.49 Family history of ischemic heart disease and other diseases of the circulatory system; F17.210 Nicotine dependence, cigarettes, uncomplicated

== ENCOUNTER → 2019-02-19 | Emergency (ER) | payer MEDICAID ==
[~2019-02-19] VITALS: Ht 177.8 cm; Wt 72.7 kg
[~2019-02-19] MED LIST changes: +BAYER CHEWABLE81 MG PO
[2019-02-19 12:01] VITALS: Ht 177.8 cm; Wt 72.7 kg
[2019-02-19 12:19] LABS: BASOPHILS 0.9 % (0-2); HEMOGLOBIN 15.4 g/dL (13.5-17.5); IMMATURE GRANULOCYTES 0.3 % (0-5); LYMPHOCYTES 35.1 % (15-50); MCH 33.4 pg (26.0-34.0); MCV 95.4 fL (80.0-100.0); MEAN PLATELET VOLUME 9.5 fL (7.4-10.4); MONOCYTES 11.7 % (2-11); PLATELET COUNT 323 10x3/uL (130-400); RBC 4.61 10x6/uL (4.20-6.10); RDW 13.1 % (11.5-14.5); WBC 10.5 10x3/uL (4.8-10.8)
[2019-02-19 12:34] LABS: CALC OSMOLALITY 271 mosm/kg (275-300); CALCIUM 8.6 mg/dL (8.5-10.1); CARBON DIOXIDE 29.1 mmol/L (21.0-32.0); CHLORIDE - SERUM 101 mmol/L (98-107); CREATININE - SERUM 0.9 mg/dL (0.6-1.3); GLUCOSE 116 mg/dL (74-106); SODIUM 136 mmol/L (136-145); UREA NITROGEN 9 mg/dL (7-18); eGFR NON AFRICAN AMERICAN > 90 mL/min (90-120)
[2019-02-19 12:49] LABS: ALBUMIN 3.7 g/dL (3.4-5.0); ALKALINE PHOSPHATASE 83 U/L (46-116); ALT (SGPT) 30 U/L (10-68); BILIRUBIN - TOTAL 0.26 mg/dL (0.2-1.3); CKMB 1.9 U/L (0.0-3.6); CREATINE KINASE 213 UL (21-232); MAGNESIUM - SERUM 1.7 mg/dL (1.8-2.4); PROTEIN - SERUM 7.1 g/dL (6.4-8.2)
[2019-02-19 12:50] LABS: TROPONIN-I < 0.017 ng/mL (0.000-0.060)
[2019-02-19 13:17] LABS: INR 0.98 (0.85-1.17); PROTIME 12.5 SECONDS (11.6-15.0)
[2019-02-19 13:36] VITALS: BP 172/90
== END | disposition home or self-care (01) ==
LOC: D.ER 12:00
PROVIDERS: Family Medicine
DX: I63.9 Cerebral infarction, unspecified (principal); J44.9 Chronic obstructive pulmonary disease, unspecified; Z72.0 Tobacco use

== ENCOUNTER → 2019-04-10 09:09 | Outpatient (CLI) | payer MEDICAID ==
[2019-02-19 12:01] VITALS: BMI 23.0
== END | disposition home or self-care (01) ==
LOC: D.CT 09:09
PROVIDERS: ATTEND Family Medicine
DX: I65.23 Occlusion and stenosis of bilateral carotid arteries (principal)